=== PATIENT | female | born 1995 | race Hispanic/Latino ===

== ENCOUNTER 2020-09-04 17:40 | Emergency (ER) | payer OTHER ==
--- OUTSIDE RECORDS SUMMARY | 2020-09-04 17:43 | XMS REPORT | Continuity of Care Document ---
:1995 Author Organization [facility] t Address [address] [place] [address] Care Team Providers Name Role Phone Francisco Mathew DO Attending Clinician Provider, Urgent Care Attending Clinician Unavailable Chris Blandon Attending Clinician Problems This patient has no known problems. Allergies, Adverse Reactions, Alerts This patient has no known allergies or adverse reactions. Medications This patient has no known medications. Procedures This patient has no known procedures. Encounters Start End Encounter Admission Attending Care Care Encounter Source Date/Time Date/Time Type Type Clinicians Facility Department ID 2020-05-16 2020-05-16 Patient KELLY Mathew [id number] 00:00:00 00:00:00 Outreach Francisco [facility] [id number] Melvin [facility] [id number] PAVILLION [id number] 2019-11-10 2019-11-10 Urgent Provider [place] [id number] 11:40:00 12:00:00 Care [facility] [id number] Care [place] [id number] Professio [id number] nal [address] 2019-09-21 2019-09-21 Office KELLY Hurtado [id number] 11:15:23 11:30:23 Visit Amy Perez [employer] [id number] [facility] [id number] MATERNAL [phone] & CHILD [address] [place] [address] Results This patient has no known results.
[2020-09-04 17:54] LABS: Urine Blood 3+ (Negative); Urine Glucose Negative (Negative); Urine Protein Negative (Negative); Urine Specific Gravity 1.015 (1.005-1.030)
--- NOTE | 2020-09-04 18:09 | EDPHYS ---
Physician Documentation [facility] Name: Raleigh Contreras Age: 24 yrs Sex: Female : 1995 Arrival Date: 09/04/2020 Time: 17:42 Bed 30 Private MD: ED Physician Bill Suarez HPI: 09/04 17:45 This 24 yrs old Female presents to ER via Ambulatory with complaints of cp needlestick. 18:01 Type of Exposure: needlestick, a hollow needle. Area of exposure: left hand. Context: jr8 The problem was sustained at a [facility]. Onset: The symptoms/episode began/occurred acutely, today. Symptoms: The patient does not have any acute complaints. The patient has not experienced similar symptoms in the past. The patient has not recently seen a physician. Patient stated that she was throwing a syringe in sharps container and was stuck by another hypodermic needle in box. Historical: - Allergies: 18:18 No Known Allergies; ss - Home Meds: 18:18 None [Active]; ss - PMHx: 18:18 None; ss - PSHx: 18:18 None; ss - Immunization history:: Adult Immunizations up to date. - Social history:: Smoking status: Patient denies any tobacco usage or history of. ROS: 18:01 Eyes: Negative for injury, pain, redness, and discharge, ENT: Negative for injury, jr8 pain, and discharge, Neck: Negative for injury, pain, and swelling, Cardiovascular: Negative for chest pain, palpitations, and edema, Respiratory: Negative for shortness of breath, cough, wheezing, and pleuritic chest pain, Abdomen/GI: Negative for abdominal pain, nausea, vomiting, diarrhea, and constipation, Back: Negative for injury and pain, MS/Extremity: Negative for injury and deformity, Skin: Negative for injury, rash, and discoloration, Neuro: Negative for headache, weakness, numbness, tingling, and seizure. Exam: 18:01 Constitutional: This is a well developed, well nourished patient who is awake, alert, jr8 and in no acute distress. Cardiovascular: Regular rate and rhythm with a normal S1 and S2. No gallops, murmurs, or rubs. Normal PMI, no JVD. No pulse deficits. Respiratory: Lungs have equal breath sounds bilaterally, clear to auscultation and percussion. No rales, rhonchi or wheezes noted. No increased work of breathing, no retractions or nasal flaring. Skin: Warm, dry with normal turgor. Normal color with no rashes, no lesions, and no evidence of cellulitis. MS/ Extremity: Pulses equal, no cyanosis. Neurovascular intact. Full, normal range of motion. Small puncture wound noted to affected finger without any bleeding currently Neuro: Awake and alert, GCS 15, oriented to person, place, time, and situation. Cranial nerves II-XII grossly intact. Motor strength 5/5 in all extremities. Sensory grossly intact. Cerebellar exam normal. Normal gait. Vital Signs: 18:18 Pulse 64; Resp 14; Temp 98.2(TE); Pulse Ox 99% ; Pain 0/10; ss MDM: 17:57 Patient medically screened. jr8 18:01 Data reviewed: vital signs, nurses notes, lab test result(s). Data interpreted: Pulse jr8 oximetry: on room air is 100 %. Interpretation: normal. Counseling: I had a detailed discussion with the patient and/or guardian regarding: the historical points, exam findings, and any diagnostic results supporting the discharge/admit diagnosis, lab results, the need for outpatient follow up, a family practitioner, an infectious disease specialist, to return to the emergency department if symptoms worsen or persist or if there are any questions or concerns that arise at home. ED course: Patient stated that she is up to date on Tetanus and hepatitis B vaccine. Last titers drawn were good. Discussed HIV risk, HCV risk, and HBV risk with patient. Low risk at this point but need official hepatitis exposure panel to come back. As far as HIV it is considered unknown low inoculation source. Low likely landers of exposure at this point but did give option of the 2 drug PEP regiment. Patient declines at this time and will f/u with labs and ID if needed. . 09/04 17:43 Order name: CBC with Diff rn 09/04 17:43 Order name: Basic Metabolic Panel rn 09/04 17:43 Order name: LFT's rn 09/04 17:43 Order name: Urine Dipstick-Ancillary (obtain specimen); Complete Time: 18:03 rn 09/04 17:53 Order name: Urine Dipstick-Ancillary; Complete Time: 17:57 EDAK 09/04 17:56 Order name: Urine --Ancillary (enter results) eb 09/04 17:43 Order name: Urine Test (obtain specimen); Complete Time: 18:03 rn Administered Medications: No medications were administered Disposition: 09/05 06:57 Co-signature as Attending Physician, Bill Suarez MD I agree with the assessment and rn plan of care. Attestation: The patient's history, exam findings, diagnostics, and a summary of any interventions or procedures was reviewed in detail with Phil KING. Disposition Summary: 09/04/20 18:08 Discharge Ordered Location: Home jr8 Problem: new jr8 Symptoms: have improved jr8 Condition: Stable jr8 Diagnosis - Encounter for examination and observation following work accident jr8 Followup: jr8 - With: Atif Lei MD - When: As needed - Reason: Recheck today's complaints, Continuance of care, Re-evaluation by your physician Discharge Instructions: - Discharge Summary Sheet jr8 - Body Fluid Exposure Information jr8 Forms: - Medication Reconciliation Form jr8 - Thank You Letter jr8 - Antibiotic Education jr8 - Prescription Opioid Use jr8 Signatures: Dispatcher [employer] [facility] Bill Suarez MD MD rn Smirch, Shelby, RN RN ss Roszak, Josh, PA PA jr8 Osmani Hernandez PA PA cp
--- NOTE | 2020-09-04 18:09 | ER ---
Nurse's Notes [facility] Name: Raleigh Contreras Age: 24 yrs Sex: Female : 1995 Arrival Date: 09/04/2020 Time: 17:42 Bed 30 Private MD: Diagnosis: Encounter for examination and observation following work accident Presentation: 09/04 17:47 Chief complaint: Patient states: Needle stick to finger while at work. Pt is requesting ss prophylactic medication. Coronavirus screen: Client denies travel out of the [place] in the last 14 days. Ebola Screen: Patient denies exposure to infectious person. Patient denies travel to an Ebola-affected area in the 21 days before illness onset. Initial Sepsis Screen: Does the patient meet any 2 criteria? No. Patient's initial sepsis screen is negative. Does the patient have a suspected source of infection? No. Patient's initial sepsis screen is negative. Risk Assessment: Do you want to hurt yourself or someone else? Patient reports no desire to harm self or others. Onset of symptoms was September 04, 2020. 17:47 Method Of Arrival: Ambulatory ss 17:47 Acuity: SARA 4 ss Historical: - Allergies: 18:18 No Known Allergies; ss - Home Meds: 18:18 None [Active]; ss - PMHx: 18:18 None; ss - PSHx: 18:18 None; ss - Immunization history:: Adult Immunizations up to date. - Social history:: Smoking status: Patient denies any tobacco usage or history of. Screenin:17 Abuse screen: Denies threats or abuse. Denies injuries from another. Nutritional ss screening: No deficits noted. Tuberculosis screening: Never had TB. Fall Risk None identified. Vital Signs: 18:18 Pulse 64; Resp 14; Temp 98.2(TE); Pulse Ox 99% ; Pain 0/10; ss ED Course: 17:42 Patient arrived in ED. rn 17:44 Osmani Hernandez PA is PHCP. cp 17:45 Bill Suarez MD is Attending Physician. cp 17:47 Arm band placed on right wrist. ss 17:48 Triage completed. ss 17:56 Phil Singh PA is PHCP. jr8 17:56 Bill Suarez MD is Attending Physician. jr8 18:03 Kasie Martin MAGY is Primary Nurse. 18:06 Atif Lei MD is Referral Physician. jr8 18:17 Patient has correct armband on for positive identification. Bed in low position. Call ss light in reach. 18:17 No provider procedures requiring assistance completed. Patient did not have IV access ss during this emergency room visit. Administered Medications: No medications were administered Outcome: 18:08 Discharge ordered by . jr8 18:17 Discharged to home ambulatory. ss 18:17 Condition: good 18:17 Discharge instructions given to patient, Instructed on discharge instructions, follow up and referral plans. Demonstrated understanding of instructions, follow-up care. 18:17 Patient left the ED. ss Signatures: Bill Suarez MD MD rn Smirch, Shelby, RN RN Phil Singh PA PA jr8 Osmani Hernandez PA PA cp
[2020-09-04 18:32] LABS: ALT/SGPT 26 U/L (12-78); AST/SGOT 15 U/L (15-37); Albumin 3.9 g/dL (3.4-5.0); Alkaline Phosphatase 63 U/L (45-117); BUN Blood Urea Nitrogen 17 mg/dL (7-18); Bicarbonate 28 mmol/L (21-32); Bilirubin Direct < 0.1 mg/dL (0-0.2); Bilirubin Total 0.3 mg/dL (0.2-1.0); Glucose Level 89 mg/dL (74-106); Potassium 4.6 mmol/L (3.5-5.1); Protein, Total 7.1 g/dL (6.4-8.2); Sodium Level 141 mmol/L (136-145)
[2020-09-04 18:37] LABS: Absolute Lymphocytes (CBC) 3.5 K/uL (0.7-4.9); Basophils % 0.4 % (0-1.3); Hematocrit 41.5 % (36.0-45.0); Lymphocytes % 43.6 % (15.3-44.8); MPV 11.4 fL (7.6-11.3); RBC Red Blood Cell Count 4.56 M/uL (3.86-4.86)
[2020-09-04 19:34] LABS: Urine Specific Gravity/Preg 1.015 (1.005-1.030)
== END 2020-09-04 18:17 | disposition home or self-care (01) ==
LOC: ER 17:40
DX: Z04.2 Encounter for examination and observation following work accident (principal); W46.1XXA Contact with contaminated hypodermic needle, initial encounter
CPT/HCPCS: 36415; 80048; 80076; 81003; 81025; 85025; 99281